=== PATIENT | male | born 1950 | race Caucasian/White ===

== ENCOUNTER 2022-03-17 18:43 | Emergency (ER) | payer MEDICARE, OTHER, SELFPAY ==
[2022-03-17 18:47] VITALS: BP 165/74; BP 174/89; PULSE 65; PULSE 70; RESP 16; TEMP 36.5; O2SAT 99; BMI 19.7
--- NOTE | 2022-03-17 19:20 | ED_ITS ---
HPI - General Adult General Chief complaint: Ear/Nose/Throat Problem Stated complaint: LUMP IN LEFT NOSTRIL,THERE 4 DAYS Time Seen by Provider: 03/17/22 18:55 History of Present Illness HPI narrative: Sly is a 71yo male patient that presents to the ED via POV with four days of sore nose and sensation of swelling/foreign body. The patient denies injury or trauma. The patient denies known foreign body. The patient has not had similar complaint before. The patient denies fever, chills, or sweats. He denies headache or changes in smell. He reports associated pressure at the left nostril and across his cheek. He denies recent URI symptoms, drainage, or sore throat. He denies ear pain. The patient denies intranasal medications or drug use. The patient has no other acute concerns or complaints. Related Data Home Medications Medication Instructions Recorded Confirmed atorvastatin 20 mg tablet 20 mg PO DAILY 03/17/22 03/17/22 bupropion HCl 300 mg 24 hr tablet, 300 mg PO DAILY 03/17/22 03/17/22 extended release duloxetine 60 mg capsule,delayed 60 mg PO DAILY 03/17/22 03/17/22 release glimepiride 2 mg tablet 2 mg PO DAILY 03/17/22 03/17/22 lamotrigine 150 mg tablet 150 mg PO HS 03/17/22 03/17/22 lancets (Accu-Chek Fastclix Lancet 03/17/22 03/17/22 Drum) levothyroxine 50 mcg tablet 50 mcg PO DAILY 03/17/22 03/17/22 metformin 500 mg tablet,extended 500 mg PO DAILY 03/17/22 03/17/22 release 24 hr modafinil 200 mg tablet 200 mg PO DAILY 03/17/22 03/17/22 omeprazole 20 mg capsule,delayed 20 mg PO DAILY 03/17/22 03/17/22 release sildenafil (pulm.hypertension) 20 20 mg PO Q24H PRN 03/17/22 03/17/22 mg tablet trazodone 100 mg tablet 100 mg PO HS 03/17/22 03/17/22 Allergies Allergy/AdvReac Type Severity Reaction Status Date / Time No Known Drug Allergies Allergy Verified 03/17/22 18:53 Review of Systems Const: Denies: fever, chills, fatigue or malaise Eyes: Denies: blurry vision or increased production of tears ENMT: Reports: nasal congestion; Denies: throat pain, throat swelling, difficulty swallowing, ear pain, nasal discharge or nose bleeds Cardio: Denies: chest pain, palpitations or shortness of breath with exertion Resp: Denies: shortness of breath or cough GI: Denies: abdominal pain, nausea, vomiting, diarrhea, constipation or difficulty swallowing Integ/Breast: Denies: rash, skin tenderness, skin swelling or sores Neuro: Denies: headache, dizziness or confusion Endo: Denies: fatigue Allergy/Immuno: Denies: throat swelling PFSH PFSH Medical History Adenomatous colon polyp 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 Controlled type 2 diabetes mellitus without complication, without long-term current use of insulin Depression Dyslipidemia Hypothyroidism (acquired) Jj's syndrome Primary insomnia Pseudoaneurysm Raynaud's syndrome Surgical History H/O arthroscopy of shoulder Social History Smoking Status: Never smoker Do you use any of these nicotine containing products: None Second hand tobacco smoke exposure: No How often do you have a drink containing alcohol: never How often do you have six or more drinks on one occasion: Never AUDIT-C Alcohol total score: 0 Non-prescribed substance use: denies use Exam Const: Vital Signs, click to edit/add: Vital Signs - 24 hr 03/17/22 18:47 03/17/22 18:47 Temperature 97.7 F 97.7 F Pulse Rate [Right Pulse Oximeter] 65 70 Respiratory Rate 16 16 Blood Pressure [Ri ght Upper Arm] 174/89 H 165/74 H Pulse Oximetry 99 99 Oxygen Delivery Me thod Room Air Room Air Documenting provider has reviewed patient's vital signs: yes Common normals: no apparent distress, average body habitus, oriented x3, no limitations, healthy appearing, alert and well nourished General appearance: cooperative and comfortable Orientation/consciousness: Yes awake, Yes oriented to person and Yes oriented to place HENMT: Common normals: normocephalic, head/scalp atraumatic, hearing grossly normal bilaterally, TM's normal bilaterally and external nose normal Head and scalp: normocephalic and atraumatic Face and sinus: normal facial exam (within limits of masking) and sinuses nontender; no flattened naso-labial fold Nose: external nose normal, septum abnormal (erythematous) deviated and other (erythema and irritation noted in the nare without nasal polyp or swelling ) Tympanic membrane: TM's normal bilaterally Eye: Common normals: EOMs intact bilaterally General eye: normal appearance of both eyes Neck & C-Spine: Common normals: full ROM, no lymphadenopathy and supple Resp: Common normals: normal respiratory effort, no retractions, no use of accessory muscles and clear to auscultation bilaterally Effort & inspection: able to speak in complete sentences Auscultation: clear to auscultation bilaterally Cardio: Common normals: regular rate, regular rhythm, S1 normal heart sound and S2 normal heart sound Rate: regular rate Rhythm: regular rhythm Hea rt sounds: S1 normal and S2 normal Extremity: Common normals: normal to inspection, full ROM and no clubbing, cyanosis or edema Neuro: Common normals: oriented x3 Sensorium/orientation: awake, alert, oriented to person and oriented to place Gait (neuro): normal gait Motor exam: no movement abnormalities noted Psych: Common normals: mental status grossly normal, thought process normal and activity/motor behavior normal Appearance: grossly normal Thought process: normal thought process Thought content: normal thought content Attention/concentration: attention grossly intact Memory/cognition: memory grossly intact Insight: insight good Judgement: judgment good Skin: Common normals: no rashes or lesions noted General skin exam: no rashes or lesions noted Course Vital Signs Vital signs: Initial Vital Signs Temperature 97.7 F 03/17/22 18:47 Temperature Source Temporal Artery Scan 03/17/22 18:47 Pulse Rate 65 03/17/22 18:47 Pulse Rhythm 03/17/22 18:47 Respiratory Rate 16 03/17/22 18:47 Respiratory Effort Spontaneous 03/17/22 18:47 Respiratory Depth Normal 03/17/22 18:47 Blood Pressure 174/89 H 03/17/22 18:47 Blood Pressure Mean 117 03/17/22 18:47 Blood Pressure Position Sitting 03/17/22 18:47 Pulse Oximetry 99 03/17/22 18:47 Oxygen Delivery Method 03/17/22 18:47 Vital Signs Temperature 97.7 F 03/17/22 18:47 Pulse Rate 65 03/17/22 18:47 Respiratory Rate 16 03/17/22 18:47 Blood Pressure 174/89 H 03/17/22 18:47 Pulse Oximetry 99 03/17/22 18:47 Oxygen Delivery Method 03/17/22 18:47 Temperature 97.7 F 03/17/22 18:47 Pulse Rate 70 03/17/22 18:47 Respiratory Rate 16 03/17/22 18:47 Blood Pressure 165/74 H 03/17/22 18:47 Pulse Oximetry 99 03/17/22 18:47 Oxygen Delivery Method 03/17/22 18:47 Medical Decision Making MDM Narrative Medical decision making narrative: Discussed work-up for nasal inflammation to include, but not limited to CT of the nasal bones, lab studies, and further evaluation with ENT scope. At this time, the patient would like to consider conservative therapy. He is strongly advised to return should he begin to develop difficulty breathing, increasing di scomfort, or other changes/new symptoms. The patient is given antibiotics and steroid cream and advised to create a compound to be applied intranasally twice daily for two weeks. He is strongly encouraged to follow with ENT for reevaluation of symptoms and further evaluation with ENT scope. Discharge Plan Discharge Clinical Impression: Nasal vestibulitis Patient Disposition: Home, Self-Care Condition: Stable Instructions: Nasal Endoscopy (DC) Additional Instructions: Thank you for choosing [facility] for your care today. Do not forcefully blow your nose or place firm pressure over the nose/face for the next 24-48h[address] soft ice bag over the nose to assist with discomfort. Elevate your head to assist with swelling and breathing when lying down. You will require follow-up with specialist, ENT, for further evaluation and treatment if symptoms and problems persist. Consider additional helpful treatments, including use of a vaporizer/humidifier, steamed bathroom, or cool outdoor air. Apply nasal ointments twice daily, for 7-10 days. You may also consider AYR, nasal saline spray in 24hrs. You may call to schedule appointment with ENT, if needed. I recommend calling primary care for follow-up in the next 3-5 days if you are unable to be seen in a timely manner by ENT. If new or worsening symptoms develop or you have any concerns in the meantime, please call your primary care clinic or return to the ER for re-evaluation. Activity Level: No Restrictions and Activity as Tolerated Discharge Diet: Regular Prescriptions: No Action lamotrigine 150 mg tablet 150 mg PO HS atorvastatin 20 mg tablet 20 mg PO DAILY glimepiride 2 mg tablet 2 mg PO DAILY Label Comments: take 1-2 tabs (2-4 mg) by mouth once daily with meal modafinil 200 mg tablet 200 mg PO DAILY levothyroxine 50 mcg tablet 50 mcg PO DAILY metformin 500 mg tablet extended release 24 hr 500 mg PO DAILY bupropion HCl 300 mg tablet extended release 24 hr 300 mg PO DAILY duloxetine 60 mg capsule,delayed release(DR/EC) 60 mg PO DAILY trazodone 100 mg tablet 100 mg PO HS omeprazole 20 mg capsule,delayed release(DR/EC) 20 mg PO DAILY Label Comments: TAKE 1 CAPSULE BY MOUTH TWICE DAILY BEFORE A MEAL sildenafil (pulm.hypertension) 20 mg tablet 20 mg PO Q24H PRN Label Comments: TAKE 2 TO 3 TABLETS BY MOUTH 1 TO 4 HOURS BEFORE SEXUAL ACTIVITY (DME) lancets [Accu-Chek Fastclix Lancet Drum] Misc MISCELLANEOUS Label Comments: TEST ONCE TO TWICE DAILY Follow Up/Referrals: Justin Beck MD [Primary Care Provider] - Stand Alone Forms: [facility] Info Instructions
[2022-03-17] MEDS: MUPIROCIN 1 GM PACKET 1 APPLIC TOPICAL (19:42)
[2022-03-17] MEDS: HYDROCORTISONE 1 % CREAM 1 APPLIC TOPICAL (19:42)
== END 2022-03-17 19:46 | disposition home or self-care (01) ==
PROVIDERS: Emergency Provider Family Medicine; PCP Family Medicine
DX: J34.89 Other specified disorders of nose and nasal sinuses (principal)
CPT/HCPCS: 99283; A9270

== ENCOUNTER 2023-04-19 08:15 | Emergency (ER) | payer MEDICARE, OTHER, SELFPAY ==
[2023-04-19 08:19] VITALS: BP 186/118; PULSE 72; RESP 18; TEMP 36.4; O2SAT 93; BMI 21.2
--- NOTE | 2023-04-19 08:40 | ED.GENADULT ---
HPI - General Adult General Date Seen: 04/19/23 Chief complaint: Back Injury/Pain Stated complaint: shingles- back pain Time Seen by Provider: 04/19/23 08:26 Source: patient Mode of arrival: ambulatory Limitations: no limitations History of Present Illness HPI narrative: Patient is a 72-year-old gentleman presents here with right-sided herpes zoster, he was diagnosed with this 5 days ago. Saw provider at [facility]. Was given there valtrex , gabapentin and oxycodone, he is really hard in getting pain control with this, in fact the last 2 nights he has not slept. He has ran out of his gabapentin which he was taking t.i.d.. Two days ago. And he is only 4 tablets left of oxycodone, and is worried about the we can. He sent a note to his physician through the portal, but has not heard back for the last 48 hours. Denies any fevers chills or sweats says the pain is definitely worse at night time, trying to sleep. Stabbing in nature, not related to any kind of pain he has had before. Denies a history of falls injury, coughing fevers chills or sweats, numbness or tingling in the extremities. History of type 2 diabetes, hypertension, depression, hypothyroidism. Related Data Home Medications Medication Instructions Recorded Confirmed atorvastatin 20 mg tablet 20 mg PO DAILY 03/17/22 03/17/22 bupropion HCl 300 mg 24 hr tablet, 300 mg PO DAILY 03/17/22 03/17/22 extended release duloxetine 60 mg capsule,delayed 60 mg PO DAILY 03/17/22 03/17/22 release glimepiride 2 mg tablet 2 mg PO DAILY 03/17/22 03/17/22 lamotrigine 150 mg tablet 150 mg PO HS 03/17/22 03/17/22 lancets (Accu-Chek Fastclix Lancet 03/17/22 03/17/22 Cait) levothyroxine 50 mcg tablet 50 mcg PO DAILY 03/17/22 03/17/22 metformin 500 mg tablet,extended 500 mg PO DAILY 03/17/22 03/17/22 release 24 hr modafinil 200 mg tablet 200 mg PO DAILY 03/17/22 03/17/22 omeprazole 20 mg capsule,delayed 20 mg PO DAILY 03/17/22 03/17/22 release sildenafil (pulm.hypertension) 20 20 mg PO Q24H PRN 03/17/22 03/17/22 mg tablet trazodone 100 mg tablet 100 mg PO HS 03/17/22 03/17/22 Previous Rx's Medication Instructions Recorded gabapentin 300 mg capsule 300 mg PO TID #90 caps 04/19/23 oxycodone-acetaminophen 5 mg-325 1 tab PO Q8H PRN pain #14 tabs 04/19/23 mg tablet (Percocet) Allergies Allergy/AdvReac Type Severity Reaction Status Date / Time No Known Drug Allergies Allergy Verified 03/17/22 18:53 Review of Systems Status of ROS: Reports: 10 or more systems reviewed and unremarkable except as noted in History and below [facility] Medical History (Updated 04/19/23 @ 08:40 by Carlos Khan MD) Primary insomnia ?F51.01 - Primary insomnia (ICD-10) 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 (ICD-10) Controlled type 2 diabetes mellitus without complication, without long-term current use of insulin ?E11.9 - Type 2 diabetes mellitus without complications (ICD-10) Hypothyroidism (acquired) ?E03.9 - Hypothyroidism, unspecified (ICD-10) 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 - Jj syndrome (ICD-10) Raynaud's syndrome ?I73.00 - Raynaud's syndrome without gangrene (ICD-10) Dyslipidemia ?E78.5 - Hyperlipidemia, unspecified (ICD-10) Depression ?F32.A - Depression, unspecified (ICD-10) 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 ?K22.70 - 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 (ICD-10) Adenomatous colon polyp ?D12.6 - Benign neoplasm of colon, unspecified (ICD-10) Surgical History H/O arthroscopy of shoulder ?Z98.890 - Other specified postprocedural states (ICD-10) Social History Smoking Status: Never smoker Do you use any of these nicotine containing products: None Second hand tobacco smoke exposure: No How often do you have a drink containing alcohol: never How often do you have six or more drinks on one occasion: Never AUDIT-C Alcohol total score: 0 Non-prescribed substance use: denies use Exam Narrative: Exam Narrative: On examination he is seen in room 5 he is in no apparent distress, pupils equal round reactive to light there is no scleral icterus redness is TMs are normal his oropharynx is normal, his neck is supple full range of motion, and no meningismus is noted. No L'hermittes sign. No lymphadenopathy anterior posterior chains, his chest is good air entry bilaterally with no wheezing crackles noted, heart sounds are normal, with no clicks murmurs or gallops, is abdomen is soft and scaphoid there is no guarding no pedal splenomegaly. Rashes characteristic of a T10 dermatomal distribution. Wrapping around his right side, the lesions are all healed at this point, with just some redness noted. Thoracic and lumbar spine have excellent normal range of motion of flexion extension rotation. With no evidence of any issues SLR is are negative bilaterally. No other rashes noted. Const: Vital Signs, click to edit/add: Vital Signs - 24 hr 04/19/23 08:19 Temperature 97.5 F L Pulse Rate [Right Pulse Oximeter] 72 Respiratory Rate 18 Blood Pressure [Ri ght Upper Arm] 186/118 H Pulse Oximetry 93 Oxygen Delivery Me thod Room Air Documenting provider has reviewed patient's vital signs: yes Course Vital Signs Vital signs: Initial Vital Signs Temperature 97.5 F L 04/19/23 08:19 Temperature Source Temporal Artery Scan 04/19/23 08:19 Pulse Rate 72 04/19/23 08:19 Respiratory Rate 18 04/19/23 08:19 Blood Pressure 186/118 H 04/19/23 08:19 Blood Pressure Mean 140 H 04/19/23 08:19 Blood Pressure Position Sitting 04/19/23 08:19 Pulse Oximetry 93 04/19/23 08:19 Oxygen Delivery Method Room Air 04/19/23 08:19 Vital Signs Temperature 97.5 F L 04/19/23 08:19 Pulse Rate 72 04/19/23 08:19 Respiratory Rate 18 04/19/23 08:19 Blood Pressure 186/118 H 04/19/23 08:19 Pulse Oximetry 93 04/19/23 08:19 Oxygen Delivery Method Room Air 04/19/23 08:19 Temperature 97.5 F L 04/19/23 08:19 Pulse Rate 72 04/19/23 08:19 Respiratory Rate 18 04/19/23 08:19 Blood Pressure 186/118 H 04/19/23 08:19 Pulse Oximetry 93 04/19/23 08:19 Oxygen Delivery Method Room Air 04/19/23 08:19 Medical Decision Making MDM Narrative Medical decision making narrative: I discussed with him herpes zoster, he is already on the Valtrex, he has very limited supply of oxycodone at night he has ran out of his gabapentin. I think gabapentin is the drug of choice here for at least this type of pain. I will refill at this point. I will given 90 tablets so good for 30 days if he somewhat unfortunately develops chronic pain (post herpetic neuralgia) This is also good for this. I discussed with him that he should be taking the stool softener with the narcotic sedation only use the narcotics at night to help him sleep. 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 Follow-up with primary care suggested, I see no other stigmata of any at thing else going on here such as pneumonia pulmonary embolism, epidural abscess, vertebral abscess, or other significant issues such as traumatic injury. I suspect the elevation of his blood pressure is due to the pain at this poor gentleman is having, Review of the FILLING STATION ATTENDANT did not show any extra prescriptions, not already explained Discharge Plan Discharge Clinical Impression: Herpes zoster Patient Disposition: Home, Self-Care Condition: Stable Instructions: Shingles (ED) Additional Instructions: Home rest start the gabapentin, I would use only the narcotics at night. Stool softeners with these, follow-up with your primary care physician. Primary side effect of the gabapentin, is sedation, occasional dizziness so be careful. Do not combine these with alcohol. Activity Level: Light activity Prescriptions: New oxycodone-acetaminophen [Percocet] 5-325 mg tablet 1 tab PO Q8H PRN (Reason: pain) Qty: 14 0RF Rx Instructions: Use the Percocet at night time. Does help you sleep. I would not use it during the day. gabapentin 300 mg capsule 300 mg PO TID Qty: 90 2RF No Action lamotrigine 150 mg tablet 150 mg PO HS atorvastatin 20 mg tablet 20 mg PO DAILY glimepiride 2 mg tablet 2 mg PO DAILY Patient Comments: take 1-2 tabs (2-4 mg) by mouth once daily with meal modafinil 200 mg tablet 200 mg PO DAILY levothyroxine 50 mcg tablet 50 mcg PO DAILY metformin 500 mg tablet extended release 24 hr 500 mg PO DAILY bupropion HCl 300 mg tablet extended release 24 hr 300 mg PO DAILY duloxetine 60 mg capsule,delayed release(DR/EC) 60 mg PO DAILY trazodone 100 mg tablet 100 mg PO HS omeprazole 20 mg capsule,delayed release(DR/EC) 20 mg PO DAILY Patient Comments: TAKE 1 CAPSULE BY MOUTH TWICE DAILY BEFORE A MEAL sildenafil (pulm.hypertension) 20 mg tablet 20 mg PO Q24H PRN Patient Comments: TAKE 2 TO 3 TABLETS BY MOUTH 1 TO 4 HOURS BEFORE SEXUAL ACTIVITY (DME) lancets [Accu-Chek Fastclix Lancet Drum] Misc MISCELLANEOUS Patient Comments: TEST ONCE TO TWICE DAILY Follow Up/Referrals: Justin Beck MD [Primary Care Provider] - Stand Alone [facility]: [facility] Inst[facility]
== END 2023-04-19 08:58 | disposition home or self-care (01) ==
LOC: ED 08:57
PROVIDERS: Emergency Provider Family Medicine; PCP Family Medicine
DX: B02.9 Zoster without complications (principal)
CPT/HCPCS: 99283; 99284

== ENCOUNTER 2023-07-08 16:05 | Emergency (ER) | payer MEDICARE, OTHER, SELFPAY ==
[2023-07-08 16:18] VITALS: BP 139/80; PULSE 95; RESP 16; TEMP 36.2; O2SAT 98; BMI 20.5
--- NOTE | 2023-07-08 17:16 | CRLHL7_ITS ---
For Patients: As a result of the Cures Act, medical imaging exams and procedure reports are released immediately into your electronic medical record. You may view this report before your referring provider. If you have questions, please contact your health care provider. INDICATION: Shortness of breath. TECHNIQUE: Chest 2 view(s) COMPARISON: CT chest dated 06/30/2021. FINDINGS: Heart size is within normal limits. Pulmonary vasculature is normal. Streaky left basilar opacities, likely atelectasis. No focal consolidation. No significant layering pleural effusion. No pneumothorax. Multilevel degenerative changes of the visualized spine. Multiple healed left rib fracture deformities. IMPRESSION: Streaky left basilar opacities, likely atelectasis. No focal consolidation. Dictated by Roger Linder MD @ 07/08/2023 6:49:54 PM (Electronically Signed)
[2023-07-08 17:38] LABS: Appearance Urine Clear (Clear); Bilirubin Urine Negative (Negative); Blood Urine Negative (Negative); Color Urine Yellow (Yellow); Glucose Urine Negative (Negative); Ketones Urine Negative (Negative); Leukocyte Esterase Urine Negative (Negative); Nitrite Urine Negative (Negative); Protein Urine Negative (Negative); Urobilinogen Urine 0.2 (0.2-1.0); pH Urine 5.5 (5.0-8.5)
--- NOTE | 2023-07-08 17:38 | ED.GENADULT ---
HPI - General Adult General Chief complaint: Diabetic Related Problem Stated complaint: diabetic, feels weak Time Seen by Provider: 07/08/23 17:07 Source: patient Mode of arrival: ambulatory Limitations: no limitations History of Present Illness HPI narrative: 73-year-old male presenting today ?not feeling well. He states that his blood sugars were elevated above 400 yesterday and about 300 today which is unusual for him. States that his blood sugars are generally around 150. He states that yesterday he had pain in the lower left abdomen and groin area and that lasted for couple of hours and then spontaneously went away. He states that he had loose stools a few days ago but that has since resolved. No urinary symptoms. No blood in his urine. No nausea or vomiting. No fevers or chills. Denies any abdomen or chest pain. He denies feeling short of breath. He denies any changes to his medications or his diet. Patient does take glyburide and metformin for diabetes. He does have a mild headache. Feels that his mouth is dry. Denies any focal neurologic deficits. No vision changes. Symptoms are very vague and nonspecific. Related Data Home Medications Medication Instructions Recorded Confirmed atorvastatin 20 mg tablet 20 mg PO DAILY 03/17/22 03/17/22 bupropion HCl 300 mg 24 hr tablet, 300 mg PO DAILY 03/17/22 03/17/22 extended release duloxetine 60 mg capsule,delayed 60 mg PO DAILY 03/17/22 03/17/22 release glimepiride 2 mg tablet 2 mg PO DAILY 03/17/22 03/17/22 lamotrigine 150 mg tablet 150 mg PO HS 03/17/22 03/17/22 lancets (Accu-Chek Fastclix Lancet 03/17/22 03/17/22 Drum) levothyroxine 50 mcg tablet 50 mcg PO DAILY 03/17/22 03/17/22 metformin 500 mg tablet,extended 500 mg PO DAILY 03/17/22 03/17/22 release 24 hr modafinil 200 mg tablet 200 mg PO DAILY 03/17/22 03/17/22 omeprazole 20 mg capsule,delayed 20 mg PO DAILY 03/17/22 03/17/22 release sildenafil (pulm.hypertension) 20 20 mg PO Q24H PRN 03/17/22 03/17/22 mg tablet trazodone 100 mg tablet 100 mg PO HS 03/17/22 03/17/22 Allergies Allergy/AdvReac Type Severity Reaction Status Date / Time No Known Drug Allergies Allergy Verified 03/17/22 18:53 Review of Systems Status of ROS: Reports: 10 or more systems reviewed and unremarkable except as noted in History and below [facility] Medical History Primary insomnia ?F51.01 - Primary insomnia (ICD-10) 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 (ICD-10) Controlled type 2 diabetes mellitus without complication, without long-term current use of insulin ?E11.9 - Type 2 diabetes mellitus without complications (ICD-10) Hypothyroidism (acquired) ?E03.9 - Hypothyroidism, unspecified (ICD-10) 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 - Shongaloo syndrome (ICD-10) Raynaud's syndrome ?I73.00 - Raynaud's syndrome without gangrene (ICD-10) Dyslipidemia ?E78.5 - Hyperlipidemia, unspecified (ICD-10) Depression ?F32.A - Depression, unspecified (ICD-10) 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 ?K22.70 - 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 (ICD-10) Adenomatous colon polyp ?D12.6 - Benign neoplasm of colon, unspecified (ICD-10) Surgical History H/O arthroscopy of shoulder ?Z98.890 - Other specified postprocedural states (ICD-10) Social History Smoking Status: Former smoker Do you use any of these nicotine containing products: None Second hand tobacco smoke exposure: No How often do you have a drink containing alcohol: never How often do you have six or more drinks on one occasion: Never AUDIT-C Alcohol total score: 0 Non-prescribed substance use: denies use Exam Narrative: Exam Narrative: Well-nourished well-developed patient in no acute distress. Alert and oriented. Answers questions appropriately. Mood and affect are appropriate. Thoughts are goal oriented and rational. No tangential or magical thinking noted. Patient speaks in full sentences without needing to catch his breath. HEENT: Normocephalic atraumatic. Pupils are equally round reactive to light. Extraocular muscles are intact. Conjunctivae are moist without any icterus noted. Slightly dry mucous membranes. Neck is soft without any lymphadenopathy or thyromegaly. No masses are appreciated. Cardiovascular: Heart is regular rate and rhythm S1 and S2 are present without any murmurs. Lungs: Crackles in the left lower base. Abdomen: Soft and nontender nondistended with normal bowel sounds. Extremities: Bilateral lower extremities are without edema. Normal DP and PT pulses. Skin: Well perfused without any obvious rashes. Const: Vital Signs, click to edit/add: Vital Signs - 24 hr 07/08/23 16:18 07/08/23 18:50 Temperature 97.2 F L Pulse Rate [Pulse Oximeter] 95 68 Respiratory Rate 16 16 [facility] 139/80 152/87 H Pulse Oximetry 98 96 Oxygen Delivery Me thod Room Air Room Air Course Course ED Course: IV established and labs were drawn. EKG, read by me, shows normal sinus rhythm with first-degree AV block and premature atrial complexes. Labs were unremarkable except that his sodium was a little low at 131. Therefore he did receive 1 L of normal saline. Blood sugar was 200. TSH elevated. Vital Signs Vital signs: Initial Vital Signs Temperature 97.2 F L 07/08/23 16:18 Temperature Source Temporal Artery Scan 07/08/23 16:18 Pulse Rate 95 07/08/23 16:18 Pulse Rhythm Regular 07/08/23 16:18 Respiratory Rate 16 07/08/23 16:18 Blood Pressure 139/80 07/08/23 16:18 Blood Pressure Mean 99 07/08/23 16:18 Blood Pressure Position Sitting 07/08/23 16:18 Pulse Oximetry 98 07/08/23 16:18 Oxygen Delivery Method Room Air 07/08/23 16:18 Vital Signs Temperature 97.2 F L 07/08/23 16:18 Pulse Rate 95 07/08/23 16:18 Respiratory Rate 16 07/08/23 16:18 Blood Pressure 139/80 07/08/23 16:18 Pulse Oximetry 98 07/08/23 16:18 Oxygen Delivery Method Room Air 07/08/23 16:18 Temperature 97.2 F L 07/08/23 16:18 Pulse Rate 68 07/08/23 18:50 Respiratory Rate 16 07/08/23 18:50 Blood Pressure 152/87 H 07/08/23 18:50 Pulse Oximetry 96 07/08/23 18:50 Oxygen Delivery Method Room Air 07/08/23 18:50 Medications Administered Medications: Generic Name Dose Route Start Last Admin Trade Name Freq PRN Reason Stop Dose Admin Sodium Chloride 1,000 mls @ 1,000 mls/hr 07/08/23 18:45 07/08/23 18:48 0.9 % Sodium Chloride 1000 Ml IV 07/08/23 19:44 1,000 mls/hr .Q1H KEYONNA Administration Medical Decision Making MDM Narrative Medical decision making narrative: 73-year-old male with elevated blood sugars at home. We discussed that he should follow up with primary care provider to see if he needs to increase his medications. Recommend he be seen this week. Lab Data Lab results reviewed: Yes I reviewed the patient's lab results Labs: Lab Results 07/08/23 07/08/23 07/08/23 Range/Units 17:17 17:30 17:45 WBC 7.24 (4.50-11.00) K/uL RBC 4.46 (4.30-5.90) m/uL Hgb 13.5 (13.5-17.5) gm/dL Hct 39.4 (37.0-53.0) % MCV 88 (80-100) fL MCH 30 (26-34) pg MCHC 34 (32-36) gm/dL RDW Coeff of Darlin 11.5 (11.5-15.5) % Plt Count 404 (140-440) K/uL Neut % (Auto) 69.0 (42.0-72.0) % Lymph % (Auto) 16.4 L (20-44) % [place] % (Auto) 11.7 H (0.0-11.0) % Eos % (Auto) 1.9 (0.0-7.0) % Baso % (Auto) 0.7 (0.0-3.0) % Neut # (Auto) 4.99 (1.7-7.0) K/uL Lymph # (Auto) 1.20 (0.90-2.90) K/uL [place] # (Auto) 0.80 (0.00-0.90) K/UL Eos # (Auto) 0.14 (0.00-0.50) K/uL Baso # (Auto) 0.05 (0.00-0.30) K/uL Abs Immat Gran (auto) 0.02 (0.00-0.30) K/uL Imm/Tot Granulo (auto) 0.3 % VBG pH 7.358 (7.32-7.43) VBG pCO2 47 (40-50) mmHG VBG pO2 34.6 (25-47) mmHG VBG HCO3 27 (21-28) mmol/L Sodium 131 L (135-149) mmol/L Potassium 4.3 (3.6-5.1) mmol/L Chloride 95 L (96-114) mmol/L Carbon Dioxide 23 (20-32) mmol/L Anion Gap 13 (7-15) mEq/L BUN 23 (7-30) mg/dL Creatinine 0.7 (0.5-1.5) mg/dL Estimated Creat Clear 64.69 Estimated GFR 98 ml/min Glucose 210 H (60-115) mg/dL Lactate 1.6 (0.5-1.9) mmol/L Calcium 9.6 (8.4-10.6) mg/dL Total Bilirubin 0.3 (0.1-1.5) mg/dL Direct Bilirubin 0.0 (0.0-0.5) mg/dL AST 21 (12-35) U/L ALT 19 (4-50) U/L Alkaline Phosphatase 79 (40-150) U/L Troponin I < 0.01 L (0.01-0.04) ng/mL C-Reactive Protein 1.7 H (0.5-1.0) mg/dL NT-Pro-B Natriuret Pep 56 pg/mL Total Protein 8.2 (6.0-8.3) g/dL Albumin 4.7 (3.3-5.0) g/dL TSH 6.030 H (0.270-4.20) uIU/mL Urine Color Yellow (Yellow) Urine Appearance Clear (Clear) Urine pH 5.5 (5.0-8.5) Ur Specific [place] 1.010 (1.000-1.030) Urine Protein Negative (Negative) Urine Glucose (UA) Negative (Negative) Urine Ketones Negative (Negative) Urine Blood Negative (Negative) Urine Nitrite Negative (Negative) Urine Bilirubin Negative (Negative) Urine Urobilinogen 0.2 (0.2-1.0) Ur Leukocyte Esterase Negative (Negative) Urine RBC 0-2 (0-2) Urine WBC 0-2 (0-5) Urine WBC Clumps None (None) Ur Squamous Epith Cells None (None-Few) Tyrosine Crystals Few A (None) Urine Bacteria None (None) SARS-CoV-2 (PCR) Negative SARS-CoV-2 (Negative) Influenza Type A (PCR) Negative PCR FLU A (Negative) Influenza Type B (PCR) Negative PCR FLU B (Negative) RSV (PCR) Negative PCR RSV (Negative) Imaging Data Chest x-ray: Attestation: I have reviewed the pertinent imaging results. Radiologist's impression: Chest 2 view(s) COMPARISON: CT chest dated 06/30/2021. FINDINGS: Heart size is within normal limits. Pulmonary vasculature is normal. Streaky left basilar opacities, likely atelectasis. No focal consolidation. No significant layering pleural effusion. No pneumothorax. Multilevel degenerative changes of the visualized spine. Multiple healed left rib fracture deformities. IMPRESSION: Streaky left basilar opacities, likely atelectasis. No focal consolidation. ECG Data Attestation: I personally reviewed and interpreted this ECG as follows: Discharge Plan Discharge Clinical Impression: Elevated blood sugar Patient Disposition: Home, Self-Care Condition: Stable Additional Instructions: Your workup was unremarkable today aside from low sodium which we replenished with IV fluids. Your thyroid level was slightly elevated - you should discuss this with your primary care provider. Recommend you follow-up with your primary care provider this week to discuss adjusting your diabetic medications. Prescriptions: No Action lamotrigine 150 mg tablet 150 mg PO HS atorvastatin 20 mg tablet 20 mg PO DAILY glimepiride 2 mg tablet 2 mg PO DAILY Patient Comments: take 1-2 tabs (2-4 mg) by mouth once daily with meal modafinil 200 mg tablet 200 mg PO DAILY levothyroxine 50 mcg tablet 50 mcg PO DAILY metformin 500 mg tablet extended release 24 hr 500 mg PO DAILY bupropion HCl 300 mg tablet extended release 24 hr 300 mg PO DAILY duloxetine 60 mg capsule,delayed release(DR/EC) 60 mg PO DAILY trazodone 100 mg tablet 100 mg PO HS omeprazole 20 mg capsule,delayed release(DR/EC) 20 mg PO DAILY Patient Comments: TAKE 1 CAPSULE BY MOUTH TWICE DAILY BEFORE A MEAL sildenafil (pulm.hypertension) 20 mg tablet 20 mg PO Q24H PRN Patient Comments: TAKE 2 TO 3 TABLETS BY MOUTH 1 TO 4 HOURS BEFORE SEXUAL ACTIVITY (DME) lancets [Accu-Chek Fastclix Lancet Drum] Misc MISCELLANEOUS Patient Comments: TEST ONCE TO TWICE DAILY Follow Up/Referrals: Justin Beck MD [Referring] - Stand Alone Forms: [facility] Info Instructions
[2023-07-08 17:51] LABS: RBC Urine 0-2 (0-2); WBC Urine 0-2 (0-5)
[2023-07-08 17:52] LABS: Tyrosine Crystal Urine Few
[2023-07-08 17:55] LABS: HCO3 VBG 27 mmol/L (21-28); Lactate* 1.6 mmol/L (0.5-1.9); PCO2 VBG 47 mmHG (40-50); PO2 VBG 34.6 mmHG (25-47); pH VBG 7.358 (7.32-7.43)
[2023-07-08 18:06] LABS: PCR FLU A Negative PCR FLU A (Negative); PCR FLU B Negative PCR FLU B (Negative); PCR RSV Negative PCR RSV (Negative); SARS PCR* Negative SARS-CoV-2 (Negative)
[2023-07-08 18:17] LABS: Basophils Absolute Auto 0.05 K/uL (0.00-0.30); Basophils Percent Auto 0.7 % (0.0-3.0); Eosinophils Absolute Auto 0.14 K/uL (0.00-0.50); Eosinophils Percent Auto 1.9 % (0.0-7.0); Hematocrit 39.4 % (37.0-53.0); Hemoglobin* 13.5 gm/dL (13.5-17.5); Immature Granulocytes Abs Auto 0.02 K/uL (0.00-0.30); Immature Granulocytes Pct Auto 0.3 %; Lymphocytes Percent Auto 16.4 % (20-44); Mean Corpuscular HGB Conc 34 gm/dL (32-36); Mean Corpuscular Hemoglobin 30 pg (26-34); Mean Corpuscular Volume 88 fL (80-100); Monocytes Percent Auto 11.7 % (0.0-11.0); Neutrophils Absolute Auto 4.99 K/uL (1.7-7.0); Platelet Count* 404 K/uL (140-440); RDW Coefficient of Variation % 11.5 % (11.5-15.5); Red Blood Count 4.46 m/uL (4.30-5.90); White Blood Count* 7.24 K/uL (4.50-11.00)
[2023-07-08 18:18] LABS: Albumin* 4.7 g/dL (3.3-5.0); Chloride* 95 mmol/L (96-114); Sodium* 131 mmol/L (135-149)
[2023-07-08 18:19] LABS: Potassium* 4.3 mmol/L (3.6-5.1)
[2023-07-08 18:20] LABS: Creatinine* 0.7 mg/dL (0.5-1.5); Est. Creatinine Clearance* 64.69; Estimated Glomerular Filt Rate 98 ml/min
[2023-07-08 18:21] LABS: Alkaline Phosphatase* 79 U/L (40-150); Anion Gap 13 mEq/L (7-15); Aspartate Amino Transferase* 21 U/L (12-35); Bilirubin Total* 0.3 mg/dL (0.1-1.5); Carbon Dioxide* 23 mmol/L (20-32); Slide Review Reflex No; Total Protein* 8.2 g/dL (6.0-8.3)
[2023-07-08 18:22] LABS: Alanine Aminotransferase* 19 U/L (4-50); Blood Urea Nitrogen* 23 mg/dL (7-30); Calcium* 9.6 mg/dL (8.4-10.6); Glucose* 210 mg/dL (60-115)
[2023-07-08 18:24] LABS: C Reactive Protein* 1.7 mg/dL (0.5-1.0)
[2023-07-08 18:37] LABS: NT Pro B Type NatriureticPept* 56 pg/mL; Troponin I* < 0.01 ng/mL (0.01-0.04)
[2023-07-08] MEDS: 0.9 % SODIUM CHLORIDE 1000 ml 1,000 ML IV (18:48)
[2023-07-08 18:50] VITALS: BP 152/87; PULSE 68; RESP 16; O2SAT 96
== END 2023-07-08 20:02 | disposition home or self-care (01) ==
PROVIDERS: Emergency Provider Family Medicine; PCP Family Medicine
DX: E11.65 Type 2 diabetes mellitus with hyperglycemia (principal)
CPT/HCPCS: 36415; 71046; 80048; 80076; 81001; 82803; 82962; 83605; 83880; 84443; 84484; 85025; 86140; 87086; 87631; 93005; 99284; 99285; J7030

== ENCOUNTER 2023-08-27 14:00 | Outpatient (RCR) | payer MEDICARE, OTHER, SELFPAY | END 2023-12-25 23:59 | disposition home or self-care (01) | PROVIDERS: PCP Family Medicine; Visit Provider Family Medicine | DX: M25.551 Pain in right hip (principal); M25.552 Pain in left hip; Z51.89 Encounter for other specified aftercare; M54.16 Radiculopathy, lumbar region | CPT/HCPCS: 97110; 97162 ==

== ENCOUNTER 2023-09-03 14:32 | Outpatient (CLI) | payer MEDICARE, OTHER, SELFPAY | END 2023-09-03 14:33 | disposition home or self-care (01) | LOC: INJ CL 14:33 | PROVIDERS: PCP Family Medicine; Visit Provider Family Medicine | DX: M54.16 Radiculopathy, lumbar region (principal); M51.36 Other intervertebral disc degeneration, lumbar region | CPT/HCPCS: 62323; J0702; Q9966 ==

== ENCOUNTER 2023-09-20 07:22 | Outpatient (CLI) | payer MEDICARE, OTHER, SELFPAY | END 2023-09-20 07:23 | disposition home or self-care (01) | LOC: INJ CL 07:22 | PROVIDERS: PCP Family Medicine; Visit Provider Family Medicine | DX: M54.16 Radiculopathy, lumbar region (principal); M51.36 Other intervertebral disc degeneration, lumbar region | CPT/HCPCS: 64483; 64484; J1100; Q9966 ==

== ENCOUNTER 2023-10-29 13:11 | Outpatient (CLI) | payer MEDICARE, OTHER, SELFPAY | END 2023-10-29 13:12 | disposition home or self-care (01) | LOC: INJ CL 13:11 | PROVIDERS: PCP Family Medicine; Visit Provider Family Medicine | DX: M54.16 Radiculopathy, lumbar region (principal); M51.36 Other intervertebral disc degeneration, lumbar region | CPT/HCPCS: 64483; 64484; J1100; Q9966 ==

== ENCOUNTER 2023-12-03 12:50 | Outpatient (CLI) | payer MEDICARE, OTHER, SELFPAY | END 2023-12-03 12:51 | disposition home or self-care (01) | LOC: INJ CL 12:51 | PROVIDERS: PCP Family Medicine; Visit Provider Family Medicine | DX: M54.16 Radiculopathy, lumbar region (principal); M51.36 Other intervertebral disc degeneration, lumbar region | CPT/HCPCS: 64483; 64484; J0702; Q9966 ==

== ENCOUNTER 2024-02-07 13:33 | Outpatient (CLI) | payer MEDICARE, OTHER, SELFPAY | END 2024-02-07 13:34 | disposition home or self-care (01) | LOC: INJ CL 13:34 | PROVIDERS: PCP Family Medicine; Visit Provider Family Medicine | DX: M54.16 Radiculopathy, lumbar region (principal); M51.36 Other intervertebral disc degeneration, lumbar region | CPT/HCPCS: 64483; 64484; J1100; Q9966 ==

== ENCOUNTER 2024-06-19 08:08 | Outpatient (CLI) | payer MEDICARE, OTHER, SELFPAY | END 2024-06-19 08:09 | disposition home or self-care (01) | PROVIDERS: PCP Family Medicine; Visit Provider Family Medicine | DX: M54.16 Radiculopathy, lumbar region (principal); M51.369 Other intervertebral disc degeneration, lumbar region without mention of lumbar back pain or lower extremity pain | CPT/HCPCS: 62323; J0702; Q9966 ==

== ENCOUNTER 2024-10-13 07:20 | Outpatient (CLI) | payer MEDICARE, BC, SELFPAY | END 2024-10-13 07:21 | disposition home or self-care (01) | PROVIDERS: PCP Family Medicine; Visit Provider Family Medicine | DX: M54.16 Radiculopathy, lumbar region (principal); M41.50 Other secondary scoliosis, site unspecified | CPT/HCPCS: 62323; J0702; Q9966 ==

== ENCOUNTER 2024-11-12 10:18 | Emergency (ER) | payer MEDICARE, BC, SELFPAY ==
[2024-11-12] VITALS (9 sets, daily range): BP systolic 135–181; BP diastolic 73–95; PULSE 54–60; RESP 13–18; TEMP 36.6; O2SAT 94–96; BMI 21.4
--- NOTE | 2024-11-12 10:36 | ED_ITS ---
HPI - Chest Pain General Time Seen by Provider: 10:36 Date Seen: 11/12/24 Chief Complaint: Chest Pain Stated Complaint: Dr sent him to get checked- heart issues Time Seen by Provider: 11/12/24 10:35 Source: patient and RN notes reviewed Mode of arrival: ambulatory Limitations: no limitations History of Present Illness HPI narrative: This 74-year-old gentleman is ambulatory into the ER with episode of chest pain this morning. About 7:00 a.m. patient was just sitting in reading the news when he developed substernal chest pressure, increased in intensity with pressure but was always a dull sensation. It did radiate into his left shoulder an arm, went up into his jaw. He did get a mild headache with it. It maybe lasted for about 15 minutes Louise. He tried to just relax and take deep breaths. Was not short of breath. He has had no prior cardiac ischemic history but does note he has a murmur. He thinks he had an echo just when the murmur was diagnosed. He is diabetic. His parents of cancer, there may have been a grandparent that had a heart attack. No current smoking but history of smoking noted in his chart. He also is on sildenafil for pulmonary hypertension as the listed use for this medication on review of his chart. Patient does have known iron deficiency anemia. 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 Is scheduled for CT colonic [place] this December. Last echo that I can find in his chart from 10/02/2022 showed normal LV size, mildly increased wall thickness, estimated EF of 60-65%. The aortic valve is s clerotic, mild stenosis, mean gradient 11 mmHg, no regurgitation. The mitral valve is sclerotic, trace regurgitation. Note I can find no pulmonary notes or documentation of any pulmonary hypertension, certainly this echo did not support pulmonary hypertension. Related Data Home Medications ?Medication ?Instructions ?Recorded ?Confirmed bupropion HCl 300 mg 24 hr tablet, 300 mg PO DAILY 03/17/22 03/09/24 extended release duloxetine 60 mg capsule,delayed 60 mg PO DAILY 03/17/22 03/09/24 release glimepiride 2 mg tablet 2 mg PO DAILY 03/17/22 03/09/24 lamotrigine 150 mg tablet 150 mg PO HS 03/17/22 03/09/24 lancets (Accu-Chek Fastclix Lancet 03/17/22 03/09/24 Drum) levothyroxine 50 mcg tablet 50 mcg PO DAILY 03/17/22 03/09/24 metformin 500 mg tablet,extended 500 mg PO DAILY 03/17/22 03/09/24 release 24 hr modafinil 200 mg tablet 200 mg PO DAILY 03/17/22 03/09/24 omeprazole 20 mg capsule,delayed 20 mg PO DAILY 03/17/22 03/09/24 release sildenafil (pulm.hypertension) 20 20 mg PO Q24H PRN 03/17/22 03/09/24 mg tablet trazodone 100 mg tablet 100 mg PO HS 03/17/22 03/09/24 celecoxib 200 mg capsule mg PO 10/09/23 03/09/24 gabapentin 300 mg capsule 300 mg PO 3XD 10/09/23 03/09/24 levalbuterol tartrate 45 1 - 2 puff inhalation Q4H PRN 10/09/23 03/09/24 mcg/actuation aerosol inhaler dyspnea oxycodone 5 mg tablet mg PO 10/09/23 03/09/24 atorvastatin 40 mg tablet 40 mg PO DAILY 03/09/24 03/09/24 insulin glargine 100 unit/mL (3 unit subcut 03/09/24 03/09/24 mL) subcutaneous pen (Lantus Solostar U-100 Insulin) nifedipine 30 mg tablet,extended 30 mg PO DAILY 03/09/24 03/09/24 release 24 hr Allergies Allergy/AdvReac Type Severity Reaction Status Date / Time doxycycline AdvReac Verified 11/12/24 10:30 Review of Systems Status of ROS Reports: 6 or more systems reviewed and unremarkable except as noted in History and below [facility] Medical History Pneumonia ?J18.9 - Pneumonia, unspecified organism (ICD-10) Chest wall pain ?R07.89 - Other chest pain (ICD-10) Primary insomnia ?F51.01 - Primary insomnia (ICD-10) 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 (ICD-10) Controlled type 2 diabetes mellitus without complication, without long-term current use of insulin ?E11.9 - Type 2 diabetes mellitus without complications (ICD-10) Hypothyroidism (acquired) ?E03.9 - Hypothyroidism, unspecified (ICD-10) 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 - [place] syndrome (ICD-10) Raynaud's syndrome ?I73.00 - Raynaud's syndrome without gangrene (ICD-10) Dyslipidemia ?E78.5 - Hyperlipidemia, unspecified (ICD-10) Depression ?F32.A - Depression, unspecified (ICD-10) 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 ?K22.70 - 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 (ICD-10) Adenomatous colon polyp ?D12.6 - Benign neoplasm of colon, unspecified (ICD-10) Surgical History History of arthroscopy of right shoulder (07/30/14) ?Z98.890 - Other specified postprocedural states (ICD-10) History of arthroscopy of left shoulder (06/29/16) ?Z98.890 - Other specified postprocedural states (ICD-10) History of hernia repair (06/29/16) ?Z98.890 - Other specified postprocedural states (ICD-10) ?Z87.19 - Personal history of other diseases of the digestive system (ICD-10) Social History Narrative: former smoker-1983 Smoking Status: Former smoker What tobacco products do you use: cigarettes Smoking quit date/years: >15 years ago Do you use any of these nicotine containing products: None Second hand tobacco smoke exposure: No How often do you have a drink containing alcohol: never How often do you have six or more drinks on one occasion: Never AUDIT-C Alcohol total score: 0 Non-prescribed substance use: denies use Exam Const Vital Signs, click to edit/add: Vital Signs - 24 hr 11/12/24 10:28 11/12/24 11:07 11/12/24 11:33 Temperature 98 F Pulse Rate 60 60 Pulse Rate [Pulse Oximeter] 59 L Respiratory Rate 18 14 13 Blood Pressure 150/81 H 161/85 H Blood Pressure [Right Upper Arm] 181/84 H Pulse Oximetry 95 96 96 Oxygen Delivery Method Room Air 11/12/24 12:00 11/12/24 12:02 11/12/24 12:15 Temperature Pulse Rate 56 L 54 L 55 L Pulse Rate [Pulse Oximeter] Respiratory Rate 13 13 17 Blood Pressure 158/80 H Blood Pressure [Right Upper Arm] Pulse Oximetry 94 94 94 Oxygen Delivery Method This 74-year-old male is seen in exam room to, he is alert, interactive, no apparent distress. He is of slender frame. Sclera clear, conjugate gaze, sym metrical facial function, speech is normal. Neck slender, no jugular venous distension, no masses or adenopathy. Lungs are clear, no wheeze or crackles, no tachypnea, no accessory muscle use. CV with 3/6 systolic ejection murmur, heard along left sternal border and does seem to transmit to the left precordium. Normal S1-S2, no S3-S4. Abdomen is soft, nontender, nondistended, no organomegaly. He has no lower extremity edema. Documenting provider has reviewed patient's vital signs: yes Course Course ED Course: Will have this patient on cardiac monitoring and pulse oximetry. Obtain EKG, troponin and appropriate labs. Blood pressure is elevated on arrival, could h jerode had an early dissection event, absolutely do need to consider ischemic disease in this patient. Will give him 324 mg aspirin while we await results. He is advised to let us know if he has any return of his symptoms. Reevaluation(s) Time of Reevaluation #1: 12:43 Reevaluation #1: Patient concerned about his glucose. Had reviewed with him that we would be rechecking a follow-up troponin and EKG. His initial troponin is normal. Will have staff to a point of care glucose. At this time would prefer him not eat, may need to consider clear liquids if he does need glucose substrate. Time of Reevaluation #2: 13:38 Reevaluation #2: Reviewed with patient that his troponins have remained normal, hemoglobin is stable at 13.1, D-dimer was normal. Labs are reassuring. EKGs are not showing any evidence of any acute ischemia or infarct. He is asymptomatic at this time, has had no return of his symptoms. We have discussed that he has not had an acute heart attack but underlying coronary vascular disease is not completely ruled out. Next step would be to do a stress test. There are no beds here, [facility] He needs stress testing but would not be able to have this done on an inpatient/observation basis at this time due to bed capacity. I have offered to order Lexiscan here or have him contact the clinic. He is going to contact the clinic, if they cannot get it done through timely fashion at the clinic they are invited to have us order it here, certainly can be ordered via me. Vital Signs Vital signs: Initial Vital Signs Temperature 98 F 11/12/24 10:28 Temperature Source Temporal Artery Scan 11/12/24 10:28 Pulse Rate 59 L 11/12/24 10:28 Pulse Rhythm Regular 11/12/24 10:28 Pulse Strength 3+ Normal 11/12/24 10:28 Respiratory Rate 18 11/12/24 10:28 Blood Pressure 181/84 H 11/12/24 10:28 Blood Pressure Mean 116 H 11/12/24 10:28 Blood Pressure Position Sitting 11/12/24 10:28 Pulse Oximetry 95 11/12/24 10:28 Oxygen Delivery Method Room Air 11/12/24 10:28 Vital Signs Temperature 98 F 11/12/24 10:28 Pulse Rate 59 L 11/12/24 10:28 Respiratory Rate 18 11/12/24 10:28 Blood Pressure 181/84 H 11/12/24 10:28 Pulse Oximetry 95 11/12/24 10:28 Oxygen Delivery Method Room Air 11/12/24 10:28 Temperature 98 F 11/12/24 10:28 Pulse Rate 55 L 11/12/24 12:15 Respiratory Rate 17 11/12/24 12:15 Blood Pressure 158/80 H 11/12/24 12:02 Pulse Oximetry 94 11/12/24 12:15 Oxygen Delivery Method Room Air 11/12/24 10:28 Medications Administered Medications: Discontinued Medications Generic Name Dose Route Start Last Admin Trade Name Freq PRN Reason Stop Dose Admin Aspirin 324 mg 11/12/24 10:53 11/12/24 11:07 Aspirin 81 Mg Tab.Chew PO 11/12/24 10:54 324 mg ONCE ONE Administration MDM - Chest Pain Lab Data Attestation: I reviewed the patient's lab results. Labs: Lab Results 05/15/25 05/15/25 05/15/25 Range/Units 10:31 10:49 11:05 WBC 4.41 L (4.50-11.00) K/uL RBC 4.28 L (4.30-5.90) m/uL Hgb 13.1 L (13.5-17.5) gm/dL Hct 38.5 (37.0-53.0) % MCV 90 (80-100) fL MCH 31 (26-34) pg MCHC 34 (32-36) gm/dL RDW Coeff of Darlin 12.0 (11.5-15.5) % Plt Count 262 (140-440) K/uL Neut % (Auto) 70.8 (42.0-72.0) % Lymph % (Auto) 15.2 L (20-44) % Villalba % (Auto) 11.8 H (0.0-11.0) % Eos % (Auto) 0.9 (0.0-7.0) % Baso % (Auto) 1.1 (0.0-3.0) % Neut # (Auto) 3.10 (1.7-7.0) K/uL Lymph # (Auto) 0.70 L (0.90-2.90) K/uL Villalba # (Auto) 0.50 (0.00-0.90) K/UL Eos # (Auto) 0.00 (0.00-0.50) K/uL Baso # (Auto) 0.00 (0.00-0.30) K/uL Abs Immat Gran (auto) 0.00 (0.00-0.30) K/uL Imm/Tot Granulo (auto) 0.2 % INR 1.08 (0.91-1.10) APTT 32 (23-33) Seconds D-Dimer Quant (PE/DVT) 0.41 (0.00-0.50) ug/ml Sodium 133 L (135-149) mmol/L Potassium 4.9 (3.6-5.1) mmol/L Chloride 101 (96-114) mmol/L Carbon Dioxide 24 (20-32) mmol/L Anion Gap 8 (7-15) mEq/L BUN 20 (7-30) mg/dL Creatinine 0.7 (0.5-1.5) mg/dL Estimated Creat Clear 66.69 Estimated GFR 97 ml/min Glucose 235 H (60-115) mg/dL Calcium 9.2 (8.4-10.6) mg/dL Total Bilirubin 0.4 (0.1-1.5) mg/dL Direct Bilirubin 0.2 (0.0-0.5) mg/dL AST 30 (12-35) U/L ALT 22 (4-50) U/L Alkaline Phosphatase 65 (40-150) U/L NT-Pro-B Natriuret Pep 148 pg/mL Total Protein 6.7 (6.0-8.3) g/dL Albumin 4.2 (3.3-5.0) g/dL Lab Acknowledgement Test Added POC Glucose (60-115) mg/dl POC Troponin I 0.01 (0.01-0.04) ng/ml 11/12/24 11/12/24 Range/Units 12:14 12:42 WBC (4.50-11.00) K/uL RBC (4.30-5.90) m/uL Hgb (13.5-17.5) gm/dL Hct (37.0-53.0) % MCV (80-100) fL MCH (26-34) pg MCHC (32-36) gm/dL RDW Coeff of Darlin (11.5-15.5) % Plt Count (140-440) K/uL Neut % (Auto) (42.0-72.0) % Lymph % (Auto) (20-44) % Villalba % (Auto) (0.0-11.0) % Eos % (Auto) (0.0-7.0) % Baso % (Auto) (0.0-3.0) % Neut # (Auto) (1.7-7.0) K/uL Lymph # (Auto) (0.90-2.90) K/uL Villalba # (Auto) (0.00-0.90) K/UL Eos # (Auto) (0.00-0.50) K/uL Baso # (Auto) (0.00-0.30) K/uL Abs Immat Gran (auto) (0.00-0.30) K/uL Imm/Tot Granulo (auto) % INR (0.91-1.10) APTT (23-33) Seconds D-Dimer Quant (PE/DVT) (0.00-0.50) ug/ml Sodium (135-149) mmol/L Potassium (3.6-5.1) mmol/L Chloride (96-114) mmol/L Carbon Dioxide (20-32) mmol/L Anion Gap (7-15) mEq/L BUN (7-30) mg/dL Creatinine (0.5-1.5) mg/dL Estimated Creat Clear Estimated GFR ml/min Glucose (60-115) mg/dL Calcium (8.4-10.6) mg/dL Total Bilirubin (0.1-1.5) mg/dL Direct Bilirubin (0.0-0.5) mg/dL AST (12-35) U/L ALT (4-50) U/L Alkaline Phosphatase (40-150) U/L NT-Pro-B Natriuret Pep pg/mL Total Protein (6.0-8.3) g/dL Albumin (3.3-5.0) g/dL Lab Acknowledgement POC Glucose 249 H (60-115) mg/dl POC Troponin I 0.00 L (0.01-0.04) ng/ml Imaging Data Chest x-ray: Attestation: I have reviewed the pertinent imaging results. Radiologist's impression: [facility] Patient ID:?[id number] Site Patient ID:?[id number]. Site :?[id number] Study:?XRay-Chest 1V-11/12/2024 11:58:55 AM Ordering Physician:?Elle Olguin Final Report: INDICATION: Chest pain. TECHNIQUE: Chest 1 portable view. COMPARISON: 07/08/2023. FINDINGS: No pneumothorax. Blunting of the left costophrenic angle with left basilar scarring or atelectasis is similar. Lungs are otherwise clear. Stable cardiac and mediastinal contours. Upper abdomen and osseous structures as imaged show no acute abnormality. IMPRESSION: No evidence of acute airspace disease. Dictated by Tmiothy Watkins MD @ 11/12/2024 12:28:29 PM (Electronic Signature) ECG Data Attestation: I personally reviewed and interpreted this ECG as follows: (Sinus rhythm with first-degree AV block, 66 beats per minute. Premature supraventricular complexes seen. Bifascicular block. Voltage criteria for LVH in aVL.) ECG interpretation date: 11/12/24 ECG interpretation time: 10:57 Prior ECG tracings: available for review (Compared to 07/08/2023, bifascicular block is new) Interpretation: Sinus bradycardia with sinus arrhythmia and first-degree AV block, 56 beats per minute. Bifascicular block. Discharge Plan Discharge Clinical Impression: Chest pain Qualifiers: Chest pain type: unspecified Qualified Code(s): R07.9 - Chest pain, unspecified Patient Disposition: Home, Self-Care Condition: Stable Instructions: Chest Pain (ED) Additional Instructions: Need to contact your clinic [facility] and have them schedule you for a stress test, do believe you would benefit from a Lexiscan with your back issues. If the clinic cannot get this done in a timely fashion, can call the ER and we can schedule you through here. In the meantime, if you have recurrent chest pain or new or concerning symptoms, recommend re-evaluation. Given your history of iron deficiency anemia, and withholding aspirin treatment at this point. Due recommend talking to Dr. Kang, schedule follow-up appointment within the next week, about your visit here, aspirin coverage and cardiac stress testing. Prescriptions: No Action gabapentin 300 mg capsule 300 mg PO 3XD celecoxib 200 mg capsule PO levalbuterol tartrate 45 mcg/actuation HFA aerosol inhaler 1 - 2 puff inhalation Q4H PRN (Reason: dyspnea) oxycodone 5 mg tablet PO nifedipine 30 mg tablet extended release 24hr 30 mg PO DAILY insulin glargine [Lantus Solostar U-100 Insulin] 100 unit/mL (3 mL) insulin pen subcut atorvastatin 40 mg tablet 40 mg PO DAILY lamotrigine 150 mg tablet 150 mg PO HS glimepiride 2 mg tablet 2 mg PO DAILY Patient Comments: take 1-2 tabs (2-4 mg) by mouth once daily with meal modafinil 200 mg tablet 200 mg PO DAILY levothyroxine 50 mcg tablet 50 mcg PO DAILY metformin 500 mg tablet extended release 24 hr 500 mg PO DAILY bupropion HCl 300 mg tablet extended release 24 hr 300 mg PO DAILY duloxetine 60 mg capsule,delayed release(DR/EC) 60 mg PO DAILY trazodone 100 mg tablet 100 mg PO HS omeprazole 20 mg capsule,delayed release(DR/EC) 20 mg PO DAILY Patient Comments: TAKE 1 CAPSULE BY MOUTH TWICE DAILY BEFORE A MEAL sildenafil (pulm.hypertension) 20 mg tablet 20 mg PO Q24H PRN Patient Comments: TAKE 2 TO 3 TABLETS BY MOUTH 1 TO 4 HOURS BEFORE SEXUAL ACTIVITY (DME) lancets [Accu-Chek Fastclix Lancet Drum] Misc MISCELLANEOUS Patient Comments: TEST ONCE TO TWICE DAILY Follow Up/Referrals: Olivier Kang MD [Primary Care Provider] - Stand Alone Forms: [facility] Info Instructions
--- NOTE | 2024-11-12 10:37 | CRLHL7_ITS ---
For Patients: As a result of the Cures Act, medical imaging exams and procedure reports are released immediately into your electronic medical record. You may view this report before your referring provider. If you have questions, please contact your health care provider. INDICATION: Chest pain. TECHNIQUE: Chest 1 portable view. COMPARISON: 07/08/2023. FINDINGS: No pneumothorax. Blunting of the left costophrenic angle with left basilar scarring or atelectasis is similar. Lungs are otherwise clear. Stable cardiac and mediastinal contours. Upper abdomen and osseous structures as imaged show no acute abnormality. IMPRESSION: No evidence of acute airspace disease. Dictated by Timothy Watkins MD @ 11/12/2024 12:28:29 PM (Electronically Signed)
[2024-11-12] MEDS: ASPIRIN 81 MG TAB.CHEW 324 MG PO (11:07)
[2024-11-12 11:25] LABS: Basophils Percent Auto 1.1 % (0.0-3.0); Eosinophils Percent Auto 0.9 % (0.0-7.0); Hematocrit 38.5 % (37.0-53.0); Hemoglobin* 13.1 gm/dL (13.5-17.5); Immature Granulocytes Pct Auto 0.2 %; Lymphocytes Percent Auto 15.2 % (20-44); Mean Corpuscular HGB Conc 34 gm/dL (32-36); Mean Corpuscular Hemoglobin 31 pg (26-34); Mean Corpuscular Volume 90 fL (80-100); Monocytes Percent Auto 11.8 % (0.0-11.0); Neutrophils Percent Auto 70.8 % (42.0-72.0); Platelet Count* 262 K/uL (140-440); Red Blood Count 4.28 m/uL (4.30-5.90); Slide Review Reflex No; White Blood Count* 4.41 K/uL (4.50-11.00)
[2024-11-12 11:27] LABS: Troponin, Point-of-Care* 0.01 ng/ml (0.01-0.04)
[2024-11-12 11:32] LABS: Albumin* 4.2 g/dL (3.3-5.0); Chloride* 101 mmol/L (96-114); Potassium* 4.9 mmol/L (3.6-5.1); Sodium* 133 mmol/L (135-149)
[2024-11-12 11:35] LABS: Alanine Aminotransferase* 22 U/L (4-50); Alkaline Phosphatase* 65 U/L (40-150); Anion Gap 8 mEq/L (7-15); Aspartate Amino Transferase* 30 U/L (12-35); Bilirubin Direct* 0.2 mg/dL (0.0-0.5); Bilirubin Total* 0.4 mg/dL (0.1-1.5); Blood Urea Nitrogen* 20 mg/dL (7-30); Calcium* 9.2 mg/dL (8.4-10.6); Carbon Dioxide* 24 mmol/L (20-32); Creatinine* 0.7 mg/dL (0.5-1.5); Est. Creatinine Clearance* 66.69; Estimated Glomerular Filt Rate 97 ml/min; Glucose* 235 mg/dL (60-115); Total Protein* 6.7 g/dL (6.0-8.3)
[2024-11-12 11:45] LABS: NT Pro B Type NatriureticPept* 148 pg/mL
[2024-11-12 12:46] LABS: Glucose, Point-of-Care* 249 mg/dl (60-115)
[2024-11-12 13:09] LABS: INR 1.08 (0.91-1.10); Partial Thromboplastin Time* 32 Seconds (23-33); Prothrombin Time 14.8 Seconds
[2024-11-12 13:12] LABS: D Dimer Quantitative* 0.41 ug/ml (0.00-0.50)
== END 2024-11-12 13:49 | disposition home or self-care (01) ==
PROVIDERS: Student in an Organized Health Care Education/Training Program; Emergency Provider Family Medicine; PCP Family Medicine
DX: R07.9 Chest pain, unspecified (principal)
CPT/HCPCS: 36415; 71045; 80048; 80076; 82947; 83880; 84484; 85025; 85379; 85610; 85730; 93005; 99285; A9270

== ENCOUNTER 2024-11-17 09:10 | Outpatient (CLI) | payer MEDICARE, BC, SELFPAY ==
--- NOTE | 2024-11-17 16:25 | W.PM.STED ---
Stress Test Note Date Date Seen: 11/17/24 Date of test: 11/17/24 Providers Primary care provider: Olivier Kang Stress test physician: Clau Almeida Stress Test Note Stress test ordered: Stress Echo Indication for test: Chest pain Stress test medicine: Definity Results discussion: Resting EKG: Sinus rhythm 76 beats per minute, bifascicular block. Resting blood pressure: 162/86 Stress test: Patient is consented on stress echo. Patient originally had a Lexiscan ordered this morning but there were some issues, he never got directions and drink caffeine this morning. Thus, we attempted to switch to treadmill stress echo. Patient does have spinal stenosis but he was willing to try the treadmill. He was exercised on the treadmill following standard Sathya protocol. He exercised to 6 minutes, stopping due to reaching exercise tolerance, goal heart rate and shortness of breath. He had no chest pain. This level of activity was equivalent to 7.3 Mets. He did have a maximum heart rate of 144 beats per minute which was 115% of a calculated target heart rate of 125. Right in recovery he had a maximum blood pressure of 204/94. Rate pressure product likely in the range of 29,376 presuming his blood pressure was elevated to that level at termination of exercise. He did have PVCs in recovery but otherwise no arrhythmia. QRS complexes almost seemed more widen with exercise and recovery and difficult to assess the J-point elevation. EKG is difficult in indeterminate to read. Echo images are pending. Impression: Subjectively negative, objectively indeterminate EKG with this Sathya protocol stress echo, PVCs seen. Follow up suggested: Patient is discharged in stable condition, will await echo images to couple this for a full formal diagnostic test. If there is further concern regarding this patient, may consider cardiology consultation, discussed with them possible CT angiography verses angiography in this diabetic patient. Did exhibit a hypertensive response.
[2024-11-17] MEDS: PERFLUTREN LIPID MICROSPHERES 2 ML VIAL IVP (16:30)
[2024-11-17 16:31] VITALS: BP 166/62; PULSE 84; RESP 18
== END 2024-11-17 16:33 | disposition home or self-care (01) ==
PROVIDERS: PCP Family Medicine; Visit Provider Family Medicine
DX: R07.9 Chest pain, unspecified (principal); I25.9 Chronic ischemic heart disease, unspecified
CPT/HCPCS: 93016; 93325; 93351; Q9957